=== PATIENT | female | born 1990 ===

== ENCOUNTER 2021-09-22 06:20 | Inpatient (IN) | payer OTHER ==
[2021-09-22 06:55] VITALS: BMI 34.9
[2021-09-22 07:41] LABS: CALCIUM 8.3 mg/dL (8.5-10.1)
[2021-09-22 07:42] LABS: BLOOD UREA NITROGEN 9.9 mg/dL (7-18)
[2021-09-22 07:45] LABS: CREATININE 0.6 mg/dL (0.55-1.3)
[2021-09-22] MEDS ORDERED: morphine SULFATE/PF 1 MG/2 ML (2cc Syringe - QUVA) ONE (08:03)
[2021-09-22] MEDS: OXYTOCIN 20 UNITS in 0.9% NS 20 UNIT/1,000 ML INFUS.BAG IV SCH (08:37)
[2021-09-22] MEDS ORDERED: CITRIC ACID/SODIUM CITRATE 30 ML UNIT-DOSE CUP PO ONE (08:45)
[2021-09-22] MEDS ORDERED: ELECTROLYTE-148 SOLN 1,000 ML IV SCH (08:45)
[2021-09-22] MEDS ORDERED: ELECTROLYTE-148 SOLN 1,000 ML IV ONE (08:45)
[2021-09-22] MEDS ORDERED: ONDANSETRON 4 MG/2 ML VIAL ONE (09:10)
[2021-09-22] MEDS ORDERED: KETOROLAC TROMETHAMINE 30 MG/1 ML VIAL ONE (09:10)
[2021-09-22] MEDS ORDERED: ceFAZolin SODIUM 1 GM VIAL ONE (09:10)
[2021-09-22] MEDS ORDERED: OXYTOCIN 10 UNITS/ML VIAL ONE (09:10)
[2021-09-22] MEDS ORDERED: morphine SULFATE/PF 1 MG/2 ML (2cc Syringe - QUVA) IT ONE (09:48)
[2021-09-22] MEDS ORDERED: ONDANSETRON 4 MG/2 ML VIAL IVPUSH PRN (09:48)
[2021-09-22] MEDS ORDERED: SENNOSIDES/DOCUSATE COMBO (SENNA PLUS) TABLET (UD) PO PRN (09:51)
[2021-09-22] MEDS ORDERED: METHYLERGONOVINE MALEATE 0.2 MG/1 ML AMP IM PRN (09:51)
[2021-09-22] MEDS: PRENATAL VITAMINS W/ FOLIC ACID TABLET (FP) PO SCH (10:00)
[2021-09-22] MEDS ORDERED: OXYTOCIN 20 UNITS in 0.9% NS 20 UNIT/1,000 ML INFUS.BAG IV ONE (10:15)
[2021-09-22] MEDS: IBUPROFEN 800 MG/8 ML IJ IVPB PRN (11:56)
[2021-09-22 14:50] LABS: HIV INTERPRETATION NEGATIVE (NEGATIVE)
[2021-09-22] MEDS: ACETAMINOPHEN 325 MG TABLET (FP) PO PRN (17:38)
[2021-09-22] MEDS ORDERED: oxyCODONE HCL 5 MG TABLET PO PRN (21:52)
[2021-09-23] MEDS: IBUPROFEN 800 MG/8 ML IJ IVPB PRN (04:08)
[2021-09-23] MEDS: ACETAMINOPHEN 325 MG TABLET (FP) PO PRN ×2 (05:28→10:27)
[2021-09-23 09:21] LABS: BASO % 0.4 % (0-2.0); EOS % 0.8 % (0-4.5); HEMATOCRIT 28.7 % (32.4-45.2); HEMOGLOBIN 9.3 GM/dL (10.7-15.3); LYMPH % 16.8 % (8-40); MCH 25.9 pg (25.7-33.7); MCHC 32.5 g/dl (32.0-36.0); MEAN CELL VOLUME 79.6 fl (80-96); MEAN PLT VOLUME 10.3 fl (7.5-11.1); MONO % 7.4 % (3.8-10.2); NEUT % 74.6 % (42.8-82.8); PLATELET COUNT 166 10^3/uL (134-434); RBC 3.61 M/mm3 (3.60-5.2); RDW 16.5 % (11.6-15.6)
[2021-09-23] MEDS ORDERED: BISACODYL 10 MG SUPP.RECT RC PRN (09:52)
[2021-09-23] MEDS ORDERED: DIPHTH,PERTUSS(ACELL),TET 0.5 ML DISP.SYRIN IM ONE (10:00)
[2021-09-23] MEDS: PRENATAL VITAMINS W/ FOLIC ACID TABLET (FP) PO SCH (10:27)
[2021-09-23] MEDS: SIMETHICONE 80 MG TAB.CHEW (FP) PO PRN ×2 (16:29→21:11)
[2021-09-23] MEDS: IBUPROFEN 600 MG TABLET (FP) PO PRN (18:11)
[2021-09-23] MEDS: oxyCODONE HCL 5 MG TABLET PO PRN (21:12)
[2021-09-24] MEDS: SIMETHICONE 80 MG TAB.CHEW (FP) PO PRN ×5 (02:44→22:56)
[2021-09-24] MEDS: IBUPROFEN 600 MG TABLET (FP) PO PRN ×4 (02:45→17:00)
[2021-09-24] MEDS: PRENATAL VITAMINS W/ FOLIC ACID TABLET (FP) PO SCH (09:04)
[2021-09-24] MEDS: OXYTOCIN 20 UNITS in 0.9% NS 20 UNIT/1,000 ML INFUS.BAG IV SCH (12:14)
[2021-09-24] MEDS: oxyCODONE HCL 5 MG TABLET PO PRN (22:56)
[2021-09-25] MEDS: IBUPROFEN 600 MG TABLET (FP) PO PRN (06:25)
[2021-09-25] MEDS: PRENATAL VITAMINS W/ FOLIC ACID TABLET (FP) PO SCH (09:22)
[2021-09-25 09:32] VITALS: BP 133/88; PULSE 86; RESP 18; TEMP 98.2
== END 2021-09-25 13:45 | disposition home or self-care (01) | DRG 540 ==
LOC: JLDR 06:20 → J3W 10:50
PROVIDERS: ADMIT Obstetrics & Gynecology; ATTEND Obstetrics & Gynecology
PROC: 10D00Z1 Extraction of Products of Conception, Low, Open Approach (ICD-10-PCS; principal; 2021-09-22)
DX: O34.211 Maternal care for low transverse scar from previous cesarean delivery (principal); Z3A.39 39 weeks gestation of pregnancy; Z37.0 Single live birth
CPT/HCPCS: 36415; 80048; 85025; 87389; 88307-TC; 90715